=== PATIENT | female | born 1955 | race Caucasian/White ===

== ENCOUNTER 2019-07-07 17:14 | Emergency (ER) | payer OTHER ==
[~2019-07-07] VITALS: Ht 167.6 cm; Wt 86.2 kg
[2019-07-07] MEDS ORDERED: METOPROLOL SUCCINATE (17:30)
[2019-07-07] MEDS ORDERED: EPINEPHRIN0.3 MG/0.3 IM (17:30)
== END 2019-07-07 18:54 | disposition home or self-care (01) ==
LOC: ED 17:14
DX: H53.9 Unspecified visual disturbance (principal); I10 Essential (primary) hypertension; Z88.5 Allergy status to narcotic agent; Z88.6 Allergy status to analgesic agent; Z91.011 Allergy to milk products; Z79.899 Other long term (current) drug therapy
CPT/HCPCS: 99283

== ENCOUNTER 2024-03-04 05:40 | Day surgery (SDC) | payer MEDICARE, OTHER ==
[2024-02-27 09:23] VITALS: BP 181/86
[~2024-03-04] VITALS: Ht 167.6 cm; Wt 86.8 kg
[~2024-03-04 05:40] MED LIST: EPINEPHRIN0.3 MG/0.3 IM; GNP B-COMPLEX1 EACH PO; METOPROLOL SUCCINATE; VIT D2-K1 20-1259 ML PO
[2024-03-04 06:00] VITALS: BP 153/69
[2024-03-04] MEDS ORDERED: LEVOTHYROXINE25 MC1 PO (06:06)
[2024-03-04] MEDS ORDERED: IBLOOD GLUCOSE TEST STRIP 1 EA TEST VI PRN (07:00)
[2024-03-04] MEDS ORDERED: LIDOCAINE HCL 1% 5 ML SDV INJ ONE (07:00)
[2024-03-04] MEDS ORDERED: LACTATED RINGER'S 1,000 ML IV SCH (07:00)
[2024-03-04] MEDS ORDERED: LIDOCAINE HCL 2% 5 ML SDV ONE (07:26)
[2024-03-04] MEDS ORDERED: propofoL 200 MG/20 ML VIAL ONE (07:26)
--- NOTE | 2024-03-04 08:20 | NUR ---
03/04/24 0820 Chaparrita Foy PATIENT ARRIVES IN PACU WITH ORAL AIRWAY IN PLACE. PATIENT IS UNRESPONSIVE TO MY VOICE AND LIGHT TOUCH.
[2024-03-04 08:47] VITALS: BP 154/65
--- NOTE | 2024-03-04 12:10 | OR ---
[facility] [address] [place], [place] [address] Signed DATE OF OPERATION: 03/04/2024 SURGEON: Saw Faulkner MD PREOPERATIVE DIAGNOSES: 1. Chronic esophageal dysphagia. 2. Chronic esophageal dysmotility. 3. Chronic intermittent iron-deficiency anemia. 4. Maternal grandmother with colon cancer in her 60s. 5. Sister with colon cancer in her 60s. 6. Personal history of colonic polyps. 7. Multiple food allergies. POSTOPERATIVE DIAGNOSES: 1. Gastroesophageal junction at 33 cm. 2. Small hiatal hernia. 3. Mild diffuse superficial gastritis. 4. Dzdjuco-cb-qfekcpwe internal and external hemorrhoids. 5. Ljgjzsf-ao-yhtomesm pandiverticulosis. 6. A 5 mm polyp at proximal transverse colon. PROCEDURES: 1. Esophagogastroduodenoscopy with CLOtest and biopsies of the duodenum, pyloric bulb, antrum, GE junction, distal esophagus, mid esophagus, and proximal esophagus. 2. Colonoscopy with hot biopsy. ESTIMATED BLOOD LOSS: None. INDICATIONS: Raiza is a 69-year-old female asked to see me for both upper and lower endoscopy. She is describing chronic esophageal dysphagia and dysmotility for over 30 years. She has been to other doctors including a specialist in [place]. She found that she was allergic to an enormous list of various food items and other items along with dairy products. She has cut back on lot of these items and it has helped her significantly, therefore the concept of her irritable bowel syndrome with diarrhea seems less likely and more related to the food allergies. She has been on Pepcid, but continues to have symptoms. Her repeat barium swallow in November of this year confirmed her esophageal dysmotility. She has quite a few tertiary contractions particularly in the distal esophagus. In addition, she has had chronic intermittent iron-deficiency anemia. She has required IV Electronically Signed By: SWA FAULKNER MD 06/19/24 1210 PATIENT NAME: RAIZA LUNA OPERATIVE REPORT DATE OF : 55 REPORT #: [id number] PHYSICIAN: SAW FAULKNER MD PCP: MARKELL WILLIAMSON MD REPORT IS CONFIDENTIAL AND NOT TO BE RELEASED WITHOUT AUTHORIZATION [facility] [address], [place] [address] Signed iron infusions. She said that works out wonderfully. She also told me her maternal grandfather had colon cancer in his 60s. A sister developed colon cancer in her 60s and subsequently from the colon cancer. She has talked about multiple colonic polyps being removed during her multiple colonoscopies. She has been on the 5-year rotation. She thinks the last upper and lower endoscopy were in 2020 while living in [place]. In the office, I gave her pamphlets on both upper and lower endoscopy. She and her are familiar with these tests. There is risk including, but not limited to gas bloating, crampy abdominal pain, bleeding, perforation requiring surgery, and missed diagnosis. We also reviewed the written instructions for a bowel prep line by line. It is the same prep her took a few years ago. She told us today that it worked out very nicely. In addition, she has a very full round face and a rather significant history of sleep apnea. Unfortunately, she cannot tolerate a CPAP mask. In addition, she has an enormous number of allergies. Consequently, she is in need of monitored anesthesia care, propofol infusion. She required preoperative blood work and an EKG. She had expressed understanding and wished to proceed. DESCRIPTION OF PROCEDURE: Raiza was taken into our endoscopy suite and placed in the supine semi-recumbent position. The posterior oropharynx was anesthetized with lidocaine spray. A bite block was utilized for the case. The adult gastroscope was introduced and advanced out into the duodenum under direct visualization of camera without difficulty. The duodenum was unremarkable. Just a tiny bit of irritation in the pyloric bulb and throughout the stomach superficially. There were no ulcerations. We took biopsies in the duodenum, pyloric bulb, and antrum for pathologic review. We took an additional biopsy of the antrum for CLOtest. Upon retroflexion of scope, she prior has just a really small hiatal hernia. The scope was withdrawn up through the area of the GE junction, which was compliant without stricture. There was no gastric or esophageal varices. She had some mild inflammation around her Z-line at 33 cm. There was no [place] mucosa. We went and took a biopsy on the edge of the Z-line for pathologic review. We went ahead and took biopsies in the distal, middle, and proximal esophagus because of her history of dysphagia and dysmotility. The vocal cords and the arytenoids were completely unremarkable. She does have rather large tonsils. After this, the gas was suctioned out and the gastroscope removed. Raiza tolerated the upper endoscopy quite well. Raiza was then rotated into the left lateral decubitus position. She was maintained on IV sedation with her propofol infusion. She required an oral airway at that point. She required constant attention from her nurse piano refinisher. A digital rectal exam was performed. She has some small external hemorrhoids. She has average sphincter tone. There were no masses. The adult colonoscope was introduced into the rectum. The rectum was coming down and she may have some tiny amount of internal rectal prolapse. It is something to keep in mind in the future. She seems to have no symptoms. The scope was then passed all the way up into the cecum without difficulty. Her prep was quite Electronically Signed By: SAW FAULKNER MD 03/04/24 1210 PATIENT NAME: RAIZA LUNA OPERATIVE REPORT DATE OF : 55 REPORT #: [id number] PHYSICIAN: SAW FAULKNER MD PCP: MARKELL WILLIAMSON MD REPORT IS CONFIDENTIAL AND NOT TO BE RELEASED WITHOUT AUTHORIZATION [facility] [address] [place], [place] [address] Signed throughout for photodocumentation. As we came into the proximal transverse colon, she had a small 5, maybe 7 mm polyp that we removed with two bites of the hot biopsy forceps. She has diverticulitis starting in and about the mid distal transverse colon all the way down to the distal sigmoid colon. They were moderate in size, few in number and scattered about. Once in the rectum, the scope was retroflexed and she has some minimal internal hemorrhoid columns as well. The gas was then suctioned out. The colonoscope removed. Raiza tolerated the lower endoscopy quite well. RECOMMENDATIONS: I will see Raiza back in my office in 7 to 14 days to review her results. She will likely stay on the five year colonoscopy rotation. Saw Faulkner MD ALB/MODL /[id number] cc: Patient Chart MD Saw Obrien MD Copies: MARKELL WILLIAMSON MD, ANDREW L MD ~ Electronically Signed By: SAW FAULKNER MD 03/04/24 1210 PATIENT NAME: RAIZA LUNA OPERATIVE REPORT DATE OF : 55 REPORT #: [id number] PHYSICIAN: SAW FAULKNER MD PCP: MARKELL WILLIAMSON MD REPORT IS CONFIDENTIAL AND NOT TO BE RELEASED WITHOUT AUTHORIZATION
--- NOTE | 2024-03-06 12:19 | PATH ---
[facility] [address] [place], [place] [address] Signed SPECIMEN(S): A DUODENAL BIOPSY SPECIMEN(S): B PYLORIC BULB BIOPSY SPECIMEN(S): C ANTRUM BIOPSY SPECIMEN(S): D GE JUNCTION BIOPSY SPECIMEN(S): E DISTAL ESOPHAGEAL BIOPSY SPECIMEN(S): F MID ESOPHAGEAL BIOPSY SPECIMEN(S): G PROXIMAL ESOPHAGEAL BIOPSY SPECIMEN(S): H PROXIMAL TRANSVERSE POLYP SPECIMEN SOURCE: A. DUODENAL BIOPSY B. PYLORIC BULB BIOPSY C. ANTRUM BIOPSY D. GE JUNCTION BIOPSY E. DISTAL ESOPHAGEAL BIOPSY F. MID ESOPHAGEAL BIOPSY G. PROXIMAL ESOPHAGEAL BIOPSY H. PROXIMAL TRANSVERSE POLYP CLINICAL HISTORY: Family history of colon cancer, history of polyps, dysphagia, mild gastritis, internal/external hemorrhoids, diverticulosis FINAL PATHOLOGIC DIAGNOSIS: A. Duodenal biopsy: - Duodenal mucosa with no significant pathologic abnormalities. - Negative for villous blunting or increase in intraepithelial lymphocytes. B. Pyloric bulb biopsy: - Duodenal mucosa with no significant pathologic abnormalities. - Negative for villous blunting or increase in intraepithelial lymphocytes. C. Antrum biopsy: - Gastric antral type mucosa with no significant pathologic abnormalities. - Negative for significant inflammation or intestinal metaplasia. D. GE junction biopsy: - Gastroesophageal mucosa with reflux type changes. - Negative for goblet cell metaplasia. E. Distal esophageal biopsy: - Esophageal squamous mucosa with mild reflux type changes. - Negative for goblet cell metaplasia. F. Mid esophageal biopsy: - Esophageal squamous mucosa with no significant pathologic abnormalities. PATIENT NAME: SAHIL LUNA PATHOLOGY DATE OF : 55 REPORT #: [id number] PHYSICIAN: AUGIE PATHOLOGY PCP: MARKELL WILLIAMSON MD REPORT IS CONFIDENTIAL AND NOT TO BE RELEASED WITHOUT AUTHORIZATION [facility] [address] [place], [place] [address] Signed G. Proximal esophageal biopsy: - Esophageal squamous mucosa with no significant pathologic abnormalities. H. Proximal transverse polyp: - Tubular adenoma, negative for high-grade dysplasia. NA MICROSCOPIC EXAMINATION: Histologic sections of all submitted blocks are examined by light microscopy. These findings, together with the gross examination, support the pathologic diagnosis. GROSS DESCRIPTION: A. The specimen, labeled and designated "[place], duodenal biopsy," is received in formalin and consists of two kay soft tissue fragments, ranging from 0.2-0.3 cm. Entirely submitted in (A1). B. The specimen, labeled and designated "[place], pyloric bulb biopsy," is received in formalin and consists of one kay soft tissue fragment, 0.3 cm. Entirely submitted in (B1). C. The specimen, labeled and designated "[place], antrum biopsy," is received in formalin and consists of one kay soft tissue fragment, 0.4 cm. Entirely submitted in (C1). D. The specimen, labeled and designated "[place], GE junction biopsy," is received in formalin and consists of one kay soft tissue fragment, 0.2 cm. Entirely submitted in (D1). E. The specimen, labeled and designated "[place], distal esophageal biopsy," is received in formalin and consists of one kay soft tissue fragment, 0.3 cm. Entirely submitted in (E1). F. The specimen, labeled and designated "[place], mid esophageal biopsy," is received in formalin and consists of one kay soft tissue fragment, 0.3 cm. Entirely submitted in (F1). G. The specimen, labeled and designated "Vanda, proximal esophageal biopsy," is received in formalin and consists of one kay soft tissue fragment, 0.3 cm. Entirely submitted in (G1). H. The specimen, labeled and designated "[place]anda, proximal transverse polyp," is received in formalin and consists of two kay soft tissue fragments, ranging from 0.2-0.3 cm. Entirely submitted in (H1). VB (under the direct supervision of a pathologist) The Gross Description was prepared using a voice recognition system. The report was reviewed for accuracy; however, sound-alike word errors, addition and/or deletions may occur. If there is any PATIENT NAME: SAHIL LUNA PATHOLOGY DATE OF : 55 REPORT #: [id number] PHYSICIAN: AUGIE HOOPER PCP: MAKRELL WILLIAMSON MD REPORT IS CONFIDENTIAL AND NOT TO BE RELEASED WITHOUT AUTHORIZATION [address] [address] Signed question about this report, please contact Client Services. ADDITIONAL NOTES: Immunohistochemical and/or in situ hybridization studies if performed in this case included appropriate positive controls that reacted as expected. This test was developed and its performance characteristics determined by [facility]. It has not been cleared or approved by the U.S. Food and Drug Administration. The FDA has determined that such clearance or approval is not necessary. This test is used for clinical purposes. It should not be regarded as investigational or for research. [facility] is certified under the Clinical Laboratory Improvement Amendments of 1988 (CLIA) as qualified to perform high complexity clinical laboratory testing. PERFORMING LABORATORY: Technical component was performed by [facility], [address] [place] [address] (CLIA# [id number]). Professional interpretation was performed by [facility], [address] [place] [address] (CLIA#: [id number]). Diagnostician: Frandy Irene MD Pathologist Electronically Signed 03/06/2024 Copies: ~ PATIENT NAME: SAHIL LUNA PATHOLOGY DATE OF : 55 REPORT #: [id number] PHYSICIAN: AUGIE HOOPER PCP: MARKELL WILLIAMSON MD REPORT IS CONFIDENTIAL AND NOT TO BE RELEASED WITHOUT AUTHORIZATION
== END 2024-03-04 08:56 | disposition home or self-care (01) ==
LOC: DS 05:40
PROVIDERS: ATTEND Colon & Rectal Surgery
PROC: 0DB78ZX Excision of Stomach, Pylorus, Via Natural or Artificial Opening Endoscopic, Diagnostic (ICD-10-PCS; 2024-03-04)
PROC: 0DB68ZX Excision of Stomach, Via Natural or Artificial Opening Endoscopic, Diagnostic (ICD-10-PCS; 2024-03-04)
PROC: 0DB18ZX Excision of Upper Esophagus, Via Natural or Artificial Opening Endoscopic, Diagnostic (ICD-10-PCS; 2024-03-04)
PROC: 0DB28ZX Excision of Middle Esophagus, Via Natural or Artificial Opening Endoscopic, Diagnostic (ICD-10-PCS; 2024-03-04)
PROC: 0DB38ZX Excision of Lower Esophagus, Via Natural or Artificial Opening Endoscopic, Diagnostic (ICD-10-PCS; 2024-03-04)
PROC: 0DBL8ZX Excision of Transverse Colon, Via Natural or Artificial Opening Endoscopic, Diagnostic (ICD-10-PCS; principal; 2024-03-04 07:30)
PROC: 0DB98ZX Excision of Duodenum, Via Natural or Artificial Opening Endoscopic, Diagnostic (ICD-10-PCS; 2024-03-04 07:30)
DX: D12.3 Benign neoplasm of transverse colon (principal); K64.8 Other hemorrhoids; K64.4 Residual hemorrhoidal skin tags; K57.32 Diverticulitis of large intestine without perforation or abscess without bleeding; K44.9 Diaphragmatic hernia without obstruction or gangrene; K29.70 Gastritis, unspecified, without bleeding; I10 Essential (primary) hypertension; E03.9 Hypothyroidism, unspecified; D50.9 Iron deficiency anemia, unspecified; K76.0 Fatty (change of) liver, not elsewhere classified; I71.23 Aneurysm of the descending thoracic aorta, without rupture; G47.33 Obstructive sleep apnea (adult) (pediatric); K22.4 Dyskinesia of esophagus; J45.909 Unspecified asthma, uncomplicated; Z91.040 Latex allergy status; Z91.011 Allergy to milk products; Z88.5 Allergy status to narcotic agent; Z91.014 Allergy to mammalian meats; Z88.8 Allergy status to other drugs, medicaments and biological substances; Z91.018 Allergy to other foods; Z91.048 Other nonmedicinal substance allergy status; Z80.0 Family history of malignant neoplasm of digestive organs
CPT/HCPCS: 00813; 36415; 87077; J2001; J2704; J7121

== ENCOUNTER 2025-01-12 08:45 | Day surgery (SDC) | payer MEDICARE, OTHER ==
[2025-01-11 08:53] VITALS: BP 159/86
[~2025-01-12] VITALS: Ht 167.6 cm; Wt 84.1 kg
--- NOTE | ~2025-01-12 | OR ---
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 POSTOPERATIVE DIAGNOSIS: Inferior turbinate hypertrophy with intolerance to CPAP. PROCEDURE: Cautery bilateral inferior turbinates. ANESTHESIA: General LMA; ELECTRIC HOIST OPERATOR, Gwendolyn. PREOPERATIVE HISTORY: Raiza is a 69-year-old lady with obstructive sleep apnea, difficulty tolerating CPAP due to nasal congestion, been found to have inferior turbinate hypertrophy, unresponsive to appropriate medications. She was taken to the operating room for the above-mentioned procedures. OPERATIVE PROCEDURE AND FINDINGS: After informed consent, patient was taken to the operating room, placed in supine position where general LMA anesthesia was induced. The patient and procedure were verified. The patient received preoperative intranasal Himanshu-Synephrine and intravenous Ancef. Headlight speculum exam of the nasal cavity showed markedly hypertrophic obstructive turbinate, inferior turbinates. Septum was centrally midline nonobstructive. The left side was approached first. A long handle needle point cautery multiple transmucosal passes on the inferior turbinate on the medial and inferior surface extending anteriorly all the way back posteriorly. Excellent shrinkage of the turbinate was obtained. Improvement in the nasal airway. Hemostasis verified. Same procedure on the right inferior turbinate. Packing was then placed, trimmed Merocel equal amount, one piece each side coated with Neosporin, tied anteriorly over a pad. The pharynx was suctioned clear of blood and secretions. The patient was then awakened, extubated, and transported to recovery room in good condition. No complications. BLOOD LOSS: Minimal. PATIENT NAME: RAIZA LUNA OPERATIVE REPORT DATE OF : 55 REPORT #: [id number] PHYSICIAN: CADE MIDDLETON MD PCP: MARKELL WILLIAMSON MD REPORT IS CONFIDENTIAL AND NOT TO BE RELEASED WITHOUT AUTHORIZATION [facility] [address] [place], [place] [address] Draft SPECIMEN: None. DRAINS: None. PACKING: One piece of Merocel in each nostril. Cade Middleton MD /ARELIS /[id number] Copies: ~ PATIENT NAME: RAIZA LUNA OPERATIVE REPORT DATE OF : 55 REPORT #: [id number] PHYSICIAN: CADE MIDDLETON MD PCP: MARKELL WILLIAMSON MD REPORT IS CONFIDENTIAL AND NOT TO BE RELEASED WITHOUT AUTHORIZATION
[~2025-01-12 08:45] MED LIST changes: +CEFAZOLIN SODIUM 2 GM/20 ML SYR IV SCH; +IBLOOD GLUCOSE TEST STRIP 1 EA TEST VI PRN; +LACTATED RINGER'S 1,000 ML IV SCH; +LEVOTHYROXINE25 MC1 PO; +LIDOCAINE 1% W/ EPI 1:100,000 20 ML MDV ONE; +LIDOCAINE HCL 1% 5 ML SDV INJ ONE; +NITRO-DUR1 EACH TD; +[UNRECOGNIZED DRUG - OTHER]
[2025-01-12 09:00] VITALS: BP 159/73
[2025-01-12] MEDS ORDERED: propofoL 200 MG/20 ML VIAL ONE (10:00)
[2025-01-12] MEDS ORDERED: OXYMETAZOLINE HCL 30 ML BTL NAS SCH (10:00)
[2025-01-12] MEDS ORDERED: PHENYLEPHRINE HCL NAS PRN (10:00)
[2025-01-12] MEDS ORDERED: LIDOCAINE HCL 2% 5 ML SDV ONE (10:01)
[2025-01-12] MEDS ORDERED: ACETAMINOPHEN 1,000 MG/100 ML VIAL ONE (10:47)
[2025-01-12] MEDS ORDERED: ondansetron HCL 4 MG/2 ML VIAL ONE (10:47)
[2025-01-12] MEDS ORDERED: ESMOLOL HCL 100 MG/10 ML VIAL IV ONE (11:16)
--- NOTE | 2025-01-12 11:19 | NUR ---
01/12/25 1119 Chaparrita Foy CRNA ADMINISTERING ESMOLOL FOR HYPERTENSION.
--- NOTE | 2025-01-12 11:50 | NUR ---
PT ARRIVES TO DS FROM PACU VIA STRETCHER. PT IS A&O AND REPORTS PAIN IS 6/10, BUT TOLERABLE AT THIS TIME. PT IS RESPONSIVE TO VERBAL STIMULI. REPORT RECEIVED FROM JOSIANE LAO W/ AT BEDSIDE. PT EDUCATED ABOUT THE IMPORTANCE OF LOWERING BLOOD PRESSURE TO REDUCE BLEEDING, PT STATES SHE HAS APPT W/DR MANAGING AAA ON SATURDAY. PT TOLERATING SMALL SIPS OF ICE WATER WITHOUT DIFFICULTY. DRIP PAD PLACED, PT EDUCATED UPON DEMONSTRATION. PT AND PT STATE VERBAL UNDERSTANDING TO DEMONSTRATION OF DRIP PAD. CALL LIGHT WITHIN REACH, WARM BLANKETS PROVIDED. PT STATES NO FURTHER NEEDS OR QUESTIONS AT THIS TIME.
[2025-01-12 11:53] VITALS: BP 174/79
--- NOTE | 2025-01-12 12:30 | NUR ---
ROUNDING ON PT FOR PAIN ASSESSMENT. PT STATES PAIN HAS NOT WORSENED AND IS TOLERABLE AT THIS TIME. DRIP PAD REMAINS IN PLACE. PT REPORTS NO FURTHER QUESTIONS OR NEEDS AT THIS TIME, AT BEDSIDE. CALL LIGHT WITHIN REACH.
[2025-01-12 12:42] VITALS: BP 136/75
--- NOTE | 2025-01-12 12:45 | NUR ---
IN PT ROOM FOR VS AND ASSESSMENT. PT REPORTS PAIN HAS REDUCED TO 2/10. NO ACUTE CHANGES FROM PREVIOUS ASSESSMENT. ORIGINAL DRIP PAD REMAINS IN PLACE W/MINOR PINK SHADOWING. PT GETTING DRESSED. AT BEDSIDE TO ASSIST. CALL LIGHT WITHIN REACH.
--- NOTE | 2025-01-12 12:55 | NUR ---
THIS RN IN ROOM FOR DC EDUCATION. PT STATES VERBAL UNDERSTANDING TO DC EDUCATION AND NO FURTHER NEEDS/QUESTIONS AT THIS TIME. PT OFF OF UNIT VIA WC TO PASSENGER SIDE OF VEHICLE. ALL BELONGINGS IN PT POSSESSION AND DRIP PAD SUPPLIES PROVIDED.
[2025-01-12] MEDS ORDERED: SEVOFLURANE 250 ML BTL INH ONE (15:57)
--- NOTE | 2025-01-14 08:13 | EKG ---
[facility] [address] [facility] [place] [address] Signed Sinus rhythm with 1st degree AV block Right bundle branch block Abnormal ECG When compared with ECG of 27-FEB-2024 09:29, Minimal criteria for Anterior infarct are no longer present T wave inversion now evident in Inferior leads T wave inversion now evident in Anterior leads Confirmed by Phil Cornejo DO ([id number]) on 01/14/2025 8:13:18 AM Electronically Signed By: PHIL CORNEJO DO 01/14/25 0813 PATIENT NAME: CHERYLSAHILLASHELL COCHRAN Electrocardiogram DATE OF : 55 PHYSICIAN: PHIL CORNEJO DO REPORT #: [id number] REPORT IS CONFIDENTIAL AND NOT TO BE RELEASED WITHOUT AUTHORIZATION
== END 2025-01-12 12:55 | disposition home or self-care (01) ==
LOC: OPS 08:45 → DS 08:45 → OPS 09:30
PROVIDERS: ATTEND Otolaryngology
PROC: 095L7ZZ Destruction of Nasal Turbinate, Via Natural or Artificial Opening (ICD-10-PCS; principal; 2025-01-12 11:00)
DX: J34.3 Hypertrophy of nasal turbinates (principal); G47.33 Obstructive sleep apnea (adult) (pediatric); J45.909 Unspecified asthma, uncomplicated; I10 Essential (primary) hypertension; E03.9 Hypothyroidism, unspecified; Z88.5 Allergy status to narcotic agent; Z88.8 Allergy status to other drugs, medicaments and biological substances; Z91.040 Latex allergy status; Z79.890 Hormone replacement therapy; Z79.899 Other long term (current) drug therapy
CPT/HCPCS: 00160; 93005; 93010; J0131; J0690; J2003; J2405; J2704; J7121